=== PATIENT | male | born 1950 | race American Indian/Alaskan Native ===

== ENCOUNTER 2017-10-21 04:13 | Emergency (ER) | payer MEDICARE, MEDICAID ==
[2017-10-21 04:40] VITALS: RESP 18
[2017-10-21 05:45] VITALS: PULSE 74; O2SAT 98
--- NOTE | 2017-10-21 06:18 | C.PDOC ---
History Of Present Illness 66 year old male presents to the ER with a complaint of constipation for the past 4 days. Patient states he feels like he has to go but only releases small pieces. Denies nausea, vomiting, GI bleed, or Hx of abdominal surgery. Time Seen by Provider: 10/21/17 04:21 Chief Complaint (Nursing): Abdominal Pain History Per: Patient History/Exam Limitations: no limitations Onset/Duration Of Symptoms: Days Current Symptoms Are (Timing): Still Present Radiation Of Pain To:: None Quality Of Discomfort: Unable To Describe Associated Symptoms: denies: Nausea, Vomiting, Other (GI bleeding, Abdominal surgery) Exacerbating Factors: None Alleviating Factors: None Recent travel outside of the [place]: No Past Medical History Reviewed: Historical Data, Nursing Documentation, Vital Signs Vital Signs: Last Vital Signs Temp 98.2 F 10/21/17 04:27 Pulse 74 10/21/17 05:42 Resp 18 10/21/17 05:42 BP 160/96 H 10/21/17 05:42 Pulse Ox 98 10/21/17 06:24 - Medical History PMH: Atrial Fibrillation, CHF, HTN Surgical History: Coronary Stent (x5), Pacemaker Family History: States: Unknown Family Hx - Social History Hx Alcohol Use: No Hx Substance Use: No - Immunization History Hx Tetanus Toxoid Vaccination: No Hx Influenza Vaccination: No Hx Pneumococcal Vaccination: No Review Of Systems Constitutional: Negative for: Fever, Chills Gastrointestinal: Positive for: Constipation. Negative for: Nausea, Vomiting, Abdominal Pain, Other (GI bleed) Physical Exam - Physical Exam Appears: Non-toxic, No Acute Distress Skin: Normal Color, Warm, Dry Head: Atraumatic, Normacephalic Eye(s): bilateral: Normal Inspection Oral Mucosa: Moist Neck: Normal, Supple Chest: Symmetrical, No Tenderness Cardiovascular: Rhythm Regular Respiratory: Normal Breath Sounds, No Rales, No Rhonchi, No Wheezing Gastrointestinal/Abdominal: Bowel Sounds (Active), Soft, No Tenderness, Distention (Mildly), No Guarding, No Rebound Back: Normal Inspection, No CVA Tenderness Extremity: Normal ROM, No Tenderness, No Swelling Neurological/Psych: Oriented x3, Normal Speech, Normal Motor Gait: Steady ED Course And Treatment O2 Sat by Pulse Oximetry: 98 (Room air) Pulse Ox Interpretation: Normal Progress Note: Obstructive series ordered, results were positive for constipation. Tylenol and fleet enema ordered with successful bowel movement. Will discharge home with instuctions to follow up with PMD for further evaluation. Medical Decision Making Medical Decision Making: On re-exam, the patient reports improvement of symptoms. Lungs are CTA, heart is RRR, abdomen is soft, non-tender and the patient is tolerating PO well. Ambulatory in the ED with steady gait. Follow up with the medical doctor/clinic within 1-2 days. Return if worsened. Disposition - Disposition Referrals: Reese Pike MD [Staff Provider] - Disposition: HOME/ ROUTINE Disposition Time: 06:34 Condition: GOOD Additional Instructions: Follow up with the medical doctor/clinic within 1-2 days. Return if worsened. Prescriptions: Docusate [Colace] 100 mg PO DAILY #40 cap Polyethylene Glycol 3350 [Miralax] 17 gm PO DAILY PRN #100 ml PRN Reason: Constipation Sod Phos,M-B/Na Phos,Di-Ba [Fleet Enema] 135 ml RC ONCE PRN #2 enema PRN Reason: Constipation Instructions: Constipation (GEN), High Fiber Diet (ED) Forms: [employer] ([place]) - Clinical Impression Clinical Impression: Constipation - PA / HIP HOP DANCER / Resident Statement MD/DO has reviewed & agrees with the documentation as recorded. - Scribe Statement The provider has reviewed the documentation as recorded by the Scribjeb Dang All medical record entries made by the Wallaceibjeb were at my direction and personally dictated by me. I have reviewed the chart and agree that the record accurately reflects my personal performance of the history, physical exam, medical decision making, and the department course for this patient. I have also personally directed, reviewed, and agree with the discharge instructions and disposition.
[2017-10-21 06:49] VITALS: BP 162/94; TEMP 97.8
--- NOTE | 2017-10-21 08:44 | RAD ---
PROCEDURE: Radiographs of the chest and abdomen (obstructive series) HISTORY: constipation COMPARISON: No prior. TECHNIQUE: AP radiograph of the chest, with upright and supine radiographs of the abdomen. FINDINGS: CHEST: Lungs: Clear. Cardiovascular: Normal heart size. AICD. No congestive change. Pleura: No pleural fluid. No pneumothorax. Other findings: None. ABDOMEN AND PELVIS: Bowel: Unremarkable bowel gas pattern. No evidence of mechanical obstruction. Free air: None. Bones: Unremarkable. Other findings: None. IMPRESSION: Unremarkable radiographs of chest and abdomen. No evidence of mechanical bowel obstruction.
== END 2017-10-21 06:50 | disposition home or self-care (01) ==
LOC: C.ER 04:13
DX: K59.00 Constipation, unspecified (principal)

== ENCOUNTER 2019-02-03 11:00 | Outpatient (CLI) | payer MEDICARE | END 2019-02-03 11:01 | disposition home or self-care (01) | LOC: C.LAB 11:00 | DX: C25.9 Malignant neoplasm of pancreas, unspecified (principal) ==